=== PATIENT | male | born 1985 | race Caucasian/White ===

== ENCOUNTER 2016-05-27 09:35 | Emergency (ER) | payer MEDICAID, OTHER ==
[2016-05-27] MEDS ORDERED: HYDROCODONE/ACETAMINOPHEN 5/325MG TABLET ONE (11:06)
[2016-05-27] MEDS ORDERED: PREDNISONE 20 MG TABLET ONE (11:06)
[2016-05-27] MEDS ORDERED: DIAZEPAM 5 MG TABLET ONE (11:07)
--- NOTE | 2016-05-27 11:27 | RAD ---
LUMBAR SPINE 3 VIEWS HISTORY: Low back pain, no known injury. Frontal, lateral, and frontal cone down views of lumbar spine acquired. COMPARISON: None. ALIGNMENT: Grossly unremarkable. DISC SPACES: Grossly preserved. COMPRESSION DEFORMITY: None. FACET JOINTS: Minor facet degeneration at the L5-S1 level. DISPLACED FRACTURE FRAGMENT: None identified. POSTSURGICAL CHANGE: Evidence of hernia repair. IMPRESSION: No compression deformity or displaced fracture fragment identified. Minor facet degeneration at the L5-S1 level.
[2016-05-27 11:44] LABS: PH,URINE 6.5 (5.0-8.0); URINE APPEARANCE CLEAR; URINE BILIRUBIN NEGATIVE (NEGATIVE); URINE BLOOD NEGATIVE (NEGATIVE); URINE COLOR YELLOW; URINE GLUCOSE (UA) NEGATIVE (NEGATIVE); URINE LEUKOCYTE ESTERASE NEGATIVE (NEGATIVE); URINE NITRITE NEGATIVE (NEGATIVE); URINE PROTEIN NEGATIVE (NEGATIVE); URINE UROBILINOGEN NORMAL (0-1 mg/dl)
== END 2016-05-27 12:06 | disposition home or self-care (01) ==
LOC: ED 09:35
DX: M54.5 Low back pain (principal); F17.210 Nicotine dependence, cigarettes, uncomplicated
CPT/HCPCS: 81003; 72100; 99284; 51798; 99283; J7512; A9270 ×2